=== PATIENT | female | born 1965 | race Caucasian/White ===

== ENCOUNTER 2022-05-28 10:15 | Emergency (ER) | payer OTHER ==
[~2022-05-28] VITALS: Ht 147.3 cm; Wt 64.4 kg
[2022-05-28 10:25] VITALS: BP 178/105
--- NOTE | 2022-05-28 10:28 | NUR ---
PT AMBULATED TO ER BED 7
--- NOTE | 2022-05-28 10:48 | NUR ---
MD MARCUM AT BEDSIDE FOR EVALUATION
--- NOTE | 2022-05-28 10:50 | NUR ---
57YO FEMALE PT C/O R EAR PAIN X3DAYS. REPORTS SUDDEN CONSTANT ONSET W/ SLIGHT DECREASE IN HEARING -RINGING OR DIZZINESS. EAR PRESENTS WITH MILD SWELLING. STATES MILD RELIEF AFTER TYLENOL AND IBUPROFEN. DENIES INJURY, FEVER, N/V/D. PT AAOX4, RESPIRATIONS EVEN AND UNLABORED. HX: HTN NKA
[2022-05-28] MEDS ORDERED: NAPR-1704 PO (11:06)
[2022-05-28] MEDS ORDERED: COROTSOL OT (11:06)
[2022-05-28] MEDS ORDERED: LIDO100S RIGHT EAR (11:06)
--- NOTE | 2022-05-28 11:14 | NUR ---
Patient discharged with v/s stable. Written and verbal after care instructions FOR [facility]IT[facility] EXTER[facility] given and explained. Patient alert, oriented and verbalized understanding of instructions. Ambulatory with steady gait. All questions addressed prior to discharge. ID band removed. Patient advised to follow up with PMD. Rx of NAPROXEN, LIDOCAINE HCL AND CORTIPORIN OTIC SOLUTION given. Opportunity to ask questions provided and answered.
--- NOTE | 2022-05-28 11:15 | NUR ---
The patient's care was reviewed and supervised by Morenita Araya RN.
== END 2022-05-28 11:14 | disposition home or self-care (01) ==
LOC: MED 10:15 → EDBD 10:15 → MED 11:14
DX: H60.91 Unspecified otitis externa, right ear (principal); I10 Essential (primary) hypertension; L40.9 Psoriasis, unspecified; Z98.890 Other specified postprocedural states
CPT/HCPCS: 99283